=== PATIENT | female | born 1935 | race Caucasian/White ===

== ENCOUNTER 2020-02-12 07:46 | Outpatient (CLI) | payer OTHER, SELFPAY ==
--- NOTE | ~2020-02-12 | MM_ITS ---
EXAMINATION: MM screening [facility] BI w [place] HISTORY: Screening mammogram TECHNIQUE: Craniocaudal and mediolateral oblique 3-D tomosynthesis images were obtained and synthetic 2-D images were generated. CAD analysis was submitted and interpreted. COMPARISON: 01/04/2019, 12/01/2017, 02/13/2014, 01/23/2014 BREAST PARENCHYMAL COMPOSITION: There are scattered areas of fibroglandular density. FINDINGS: There is no evidence of suspicious mass, calcification, or architectural distortion to sugg est malignancy in either breast. There has been no suspicious interval change. IMPRESSION: 1. No mammographic evidence of malignancy. 2. Recommend routine screening mammography in one year. BI-RADS Category 1: Negative Reviewed, dictated and finalized at location A. WINDER
== END 2020-02-12 07:47 | disposition home or self-care (01) ==
DX: Z12.31 Encounter for screening mammogram for malignant neoplasm of breast (principal)
CPT/HCPCS: 77063; 77067

== ENCOUNTER 2021-02-14 08:08 | Outpatient (CLI) | payer OTHER, SELFPAY ==
--- NOTE | ~2021-02-14 | MM_ITS ---
EXAMINATION: MM screening [facility] w [place] HISTORY: Screening TECHNIQUE: Craniocaudal and mediolateral oblique 3-D tomosynthesis images were obtained and synthetic 2-D images were generated. CAD analysis was submitted and interpreted. COMPARISON: Comparison to multiple prior studies sequentially, with oldest reviewed study dated 12/31. BREAST PARENCHYMAL COMPOSITION: Breast composed of scattered areas of fibroglandular density FINDINGS: There is no evidence of suspicious mass, calcification, or architectural distortion to sugg est malignancy in either breast. There has been no suspicious interval change. IMPRESSION: 1. No mammographic evidence of malignancy. 2. Recommend routine screening mammography in one year. BI-RADS Category 1: Negative Reviewed, dictated and finalized at location A. Y RECORD CLERK
== END 2021-02-14 08:09 | disposition home or self-care (01) ==
DX: Z12.31 Encounter for screening mammogram for malignant neoplasm of breast (principal)
CPT/HCPCS: 77063; 77067

== ENCOUNTER 2022-04-27 07:13 | Outpatient (CLI) | payer OTHER, SELFPAY ==
--- NOTE | ~2022-04-27 | MM_ITS ---
EXAMINATION: MM screening [facility] BI w [place] HISTORY: Screening mammogram TECHNIQUE: Craniocaudal and mediolateral oblique 3-D tomosynthesis images were obtained and synthetic 2-D images were generated. CAD analysis was submitted and interpreted. COMPARISON: 02/14/2021, 02/12/2020, 01/04/2019 bilateral screening mammogram examinations BREAST PARENCHYMAL COMPOSITION: There are scattered areas of fibroglandular density. FINDINGS: There is no evidence of suspicious mass, calcification, or architectural distortion to sugg est malignancy in either breast. There has been no suspicious interval change. IMPRESSION: 1. No mammographic evidence of malignancy. 2. Recommend routine screening mammography in one year. BI-RADS Category 1: Negative Reviewed, dictated and finalized at location A. ING PIT OPERATOR
== END 2022-04-27 07:14 | disposition home or self-care (01) ==
LOC: ANHIMG 07:17
DX: Z12.31 Encounter for screening mammogram for malignant neoplasm of breast (principal)
CPT/HCPCS: 77063; 77067

== ENCOUNTER 2024-01-17 07:57 | Outpatient (CLI) | payer OTHER, SELFPAY ==
--- NOTE | ~2024-01-17 | MM_ITS ---
EXAMINATION: MM screening [facility] BI w [place] HISTORY: Screening mammogram TECHNIQUE: Craniocaudal and mediolateral oblique 3-D tomosynthesis images were obtained and synthetic 2-D images were generated. CAD analysis was submitted and interpreted. COMPARISON: 04/27/2022, 02/14/2021, 02/12/2020 BREAST PARENCHYMAL COMPOSITION:Not Dense. There are scattered areas of fibroglandular density. FINDINGS: There is a more conspicuous 5 mm mass in the slightly upper, inner right subareolar region. Stable parenchymal pattern of the left breast. No suspicious microcalcifications. IMPRESSION: More conspicuous 5 mm right subareolar breast mass, as above. Spot compression views and ultrasound are advised for further evaluation. BI-RADS Category 0: Incomplete: Needs additional imaging evaluation. Reviewed, dictated and finalized at [facility]. ENSING AUDIOLOGIST
== END 2024-01-17 07:58 | disposition home or self-care (01) ==
LOC: ANHIMG 07:59
DX: Z12.31 Encounter for screening mammogram for malignant neoplasm of breast (principal); R92.8 Other abnormal and inconclusive findings on diagnostic imaging of breast
CPT/HCPCS: 77063; 77067

== ENCOUNTER 2024-04-06 11:00 | Outpatient (CLI) | payer OTHER, SELFPAY ==
--- NOTE | ~2024-04-06 | MMUS_ITS ---
EXAMINATION: MM diagnostic [facility] RT w apolonia, US breast RT limited HISTORY: Follow-up right breast asymmetry TECHNIQUE: Additional 3-D tomosynthesis images of the right breast were performed and synthetic 2-D i mages were generated. CAD analysis was submitted and interpreted. High resolution Limited right breas t ultrasound was performed. COMPARISON: 01/17/2024 BREAST PARENCHYMAL COMPOSITION: Not dense: There are scattered areas of fibroglandular density. FINDINGS: MAMMOGRAPHIC FINDINGS: There is a persistent focal asymmetry in the upper inner quadrant of the right breast, anterior third . No suspicious calcifications or architectural distortion. ULTRASOUND: Limited right breast ultrasound: At 12:00 near the nipple there is a 5 mm simple cyst corresponding t o the mammographic finding. No suspicious masses to suggest malignancy. IMPRESSION: 1. No evidence for malignancy in the right breast. 2. Routine yearly screening mammogram and regular clinical breast examination are recommended. BI-RADS Category 2: Benign finding(s). Reviewed, dictated and finalized at location B. ORK OPERATIONS TECHNICIAN IMPRESSION: 1. No evidence for malignancy in the right breast. 2. Routine yearly screening mammogram and regular clinical breast examination a re recommended. BI-RADS Category 2: Benign finding(s).
--- OUTSIDE RECORDS SUMMARY | 2024-04-06 11:40 | XMS_ITS | Clinical Summary ---
Author Organization [facility] Address [address] [place] [address] Care Team Providers Care Junior Art Director Name Role Phone Zi Carty MD Primary Care Provider Allergies Active Allergy Reactions Criticality Noted Date Comments Penicillins Hives Reaction: Hives, Medications multivitamin tablet tablet take 1 tablet by oral route every day with food 0 1 Active citalopram (CeleXA) 10 mg tablet TAKE 1 TABLET (10MG) BY ORAL ROUTE EVERY DAY 90 0 1 Active atorvastatin (LIPITOR) 10 mg tablet TAKE 1 TABLET BY MOUTH ONCE DAILY 90 0 0 Active medroxyPROGESTE Prem (PROVERA) 2.5 mg tablet Take as directed 0 0 8 Active estrogens-methy lTESTOSTERone (ESTRATEST) 1.25-2.5 mg per tablet Take as directed 0 0 8 Active calcium 500 mg tablet Take according to pjuu-qcz-[id number] r package directions 0 0 8 Active aspirin 81 mg tablet Take one by mouth one time per day 0 0 8 Active Active Problems Problem Noted Date Diagnosed Date Hyperlipidemia 07/15/2013 Overview (06/04/2016): HYPERLIPIDEMIA NEC/NOS Depression 07/15/2013 Overview (06/05/2016): DEPRESSIVE DISORDER NEC Encounters Date Type Department Care Team Description 01/17/2024 Orders Only [facility] Scanning, Provider from Last 3 Months Immunizations Name Administration Dates Next Due Influenza, Split 02/02/2012,01/27/2011, 0 Influenza, Trivalent, IM (MDV) 12/30/2012,2008 Pneumococcal Polysaccharide PPV23 11/05/2005 Td, adsorbed 01/22/2009 ZOSTER LIVE 06/01/2006 Surgical History Surgery Date Site/Laterality Comments APPENDECTOMY 1950 Appendectomy HERNIA REPAIR 1954 Hernia repair CATARACT EXTRACTION 2009 Cataract extraction Social History Tobacco Use Types Packs/Day Years Used Date Smoking Tobacco: Never Assessed Alcohol Use Standard Drinks/Week Comments Yes 0 (1 standard drink = 0.6 oz pur e alcohol) Comments Unknown Sex and Gender Information Value Date Recorded Sex Assigned at Not on file 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 Gender Identity Not on file Sexual Orientation Not on file Obstetrics History Last Filed Vital Signs Vital Sign Reading Time Taken Comments Blood Pressure 124/76 06/06/2013 11:35 AM CDT Pulse 88 06/06/2013 11:35 AM CDT Temperature - - Respiratory Rate - - Oxygen Saturation - - Inhaled Oxygen Concentration - - Weight 67.3 kg (148 lb 6.4 oz) 06/06/2013 11:35 AM CDT Height 160.7 cm (5' 3.25 ) 06/06/2013 11:35 AM C DT Body Mass Index 26.08 06/06/2013 11:35 AM CDT Plan of Treatment Not on file Procedures Procedure Name Priority Date/Time Associated Diagnosis Comments SCAN - RADIOLOGY/IMAGING 01/17/2024 from Last 3 Months Results * SCAN - RADIOLOGY/IMAGING (01/17/2024) Anatomical Region Laterality Modality Other us Provider Scanning Final Result from Last 3 Months Care Teams Junior Art Director Relationship Specialty Start Date End Date Zi Carty MD [address] [facility] [address] [place] [address] PCP - General Internal Medicine 11/29/23
--- OUTSIDE RECORDS SUMMARY | 2024-04-06 11:40 | XMS_ITS | Referral Summary ---
Author Organization [facility] Address [address] [place] [address] Care Team Providers Care News Video Editor Name Role Phone Zi Carty MD Primary Care Provider Encounters Date Type Department Care Team Description 01/17/2024 Orders Only [facility] Scanning, Provider from Last 3 Months Allergies Active Allergy Reactions Criticality Noted Date [...] calcium 500 mg tablet Take according to buuq-gja-yudrxg r package directions 0 0 8 Active aspirin 81 mg tablet Take one by mouth one time per day 0 0 8 Active Active Problems Problem Noted Date Diagnosed Date Hyperlipidemia 07/15/2013 Overview (06/04/2016): HYPERLIPIDEMIA NEC/NOS Depression 07/15/2013 Overview (06/05/2016): DEPRESSIVE DISORDER NEC Immunizations Name Administration Dates Next Due Influenza, Split 02/02/2012,01/27/2011, 0 Influenza, Trivalent, IM (MDV) 12/30/2012,2008 Pneumococcal Polysaccharide PPV23 11/05/2005 Td, adsorbed 01/22/2009 ZOSTER LIVE 06/01/2006 Social History Tobacco Use Types Packs/Day Years Used Date Smoking Tobacco: Never Assessed Alcohol Use Standard Drinks/Week Comments Yes 0 (1 standard drink = 0.6 oz pur e alcohol) Comments Unknown Sex and Gender Information Value Date Recorded Sex Assigned at Not on file 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
--- OUTSIDE RECORDS SUMMARY | 2024-04-06 11:40 | XMS_ITS | Encounter Summary ---
Author Organization [facility] Address [address] [place] [address] Phone Care Team Providers Care Monogram Maker Name Role Phone Zi Carty MD Primary Care Provider [phone] Encounter Details Date Type Department Care Team (Latest Contact Info) Description 01/17/2024 Orders Only [facility] Scanning, Provider Social History Tobacco Use Types Packs/Day Years Used Date Smoking Tobacco: Never Assessed Alcohol Use Standard Drinks/Week Comments Yes 0 (1 standard drink = 0.6 oz pur e alcohol) Comments Unknown Sex and Gender Information Value Date Recorded Sex Assigned at Not on file 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 Gender Identity Not on file Sexual Orientation Not on file documented as of this encounter Plan of Treatment Not on file documented as of this encounter Procedures Procedure Name Priority Date/Time Associated Diagnosis Comments SCAN - RADIOLOGY/IMAGING 01/17/2024 documented in this encounter Results * SCAN - RADIOLOGY/IMAGING (01/17/2024) Anatomical Region Laterality Modality Other us Provider Scanning Final Result documented in this encounter Visit Diagnoses Not on filedocumented in this encounter Care Teams Monogram Maker Relationship Specialty Start Date End Date Zi Carty MD [address] [place] [address] PCP - General Internal Medicine 11/29/23 documented as of this encounter
--- OUTSIDE RECORDS SUMMARY | 2024-04-06 11:40 | XMS_ITS | Continuity of Care Document ---
Author Organization [facility] Address [address] [place] [address] Phone Care Team Providers Care Securities And Real Estate Director Name Role Phone Serg Duque Unavailable Unavailable Procedures Procedure Date Post-op Follow-up Visit Remove Cataract, Insert Lens Presbyopia Correcting IOL No Charge Glasses Check Office/outpatient Visit, [facility] Advance Directives Directive Yes / No Effective Date File Name No Information Encounters Encounter Description Practice Location Reason(s) For Visit Diagnoses Date Provider Providers Copied on Encounter [facility], [address] [place] [address] [address], [place], [place], [id number], tel:[phone] [facility] No Information 0 Neto Ulrich. [address] , [address], [place], [place], [facility], . tel:[phone] [facility], [id number] [place] [address] [address], [place], [place], [id number], [place] tel:[phone] [facility] No Information 0 Neto Ulrich. [address] , [address], [place], [place], [facility], . tel:[phone] [facility], [address] [place] [address] [address], [place], [place], [id number], tel:[phone] [facility] No Information 3-201 0 Neto Ulrich. [address] [facility] , [address], [place], [address], [place]. tel:[phone] Office/outpat ient Visit, [facility], [address], [place], [place], [id number], [place] tel:[phone] [facility] No Information 8-201 0 Neto Ulrich. [address] [facility] , [address], [place], [address], [place]. tel:[phone] Referring Provider: Serg Woo, [facility] [facility] [address], [place], [address]. tel:[phone] Family History Family Member Type Diagnosis Age At Onset No Information Payers Payer name Insurance type Covered democrat ID Authoriza tion(s) No Information Social History Type Description Quantity Date Captured Comments Sex Female Smoking Status No Information Chief Complaint And Reason For Visit No Information Reason For Referral Reason For Referral No Information History Of Present Illness Encounter Date Complaint History Of Prese nt Illness No Information Functional Status Date Functional Assessmen t No Information Instructions Date Instruction Additional Infor mation No Information Assessments Type Assessment Date No Information Patient Care Teams Name Effective Dates (start - stop) Status Members No Information
--- OUTSIDE RECORDS SUMMARY | 2024-04-06 11:40 | XMS_ITS | Clinical Summary ---
Author Organization [facility] Address [address] [place] [address] Phone Care Team Providers Care Resident Care Director Name Role Phone Zi Carty MD Primary Care Provider Allergies Active Allergy Reactions Criticality Noted Date Comments Penicillins Rash 09/08/2017 Medications antipyrine-dano ocaine (AURODEX) 5.4-1.4 % Solution Place 2-4 Drops in affected ear(s) every 2 hours as needed for Pain. Use in affected ear as directed. 10 mL 09/08/2017 Active Social History Tobacco Use Types Packs/Day Years Used Date Smoking Tobacco: Never Smokeless Tobacco: Never Alcohol Use Standard Drinks/Week Comments Yes 0 (1 standard drink = 0.6 oz pur e alcohol) socially Comments No Sex and Gender Information Value Date Recorded Sex Assigned at Not on file Legal Sex Female 10:15 AM CDT Gender Identity Not on file Sexual Orientation Not on file Last Filed Vital Signs Vital Sign Reading Time Taken Comments Blood Pressure 118/61 09/08/2017 10:30 AM CDT Pulse 99 09/08/2017 10:30 AM CDT Temperature 36.6 C (97.9 F) 09/08/2017 10:30 AM CDT Respiratory Rate 16 09/08/2017 10:30 AM CDT Oxygen Saturation 99% 09/08/2017 10:30 AM CDT Inhaled Oxygen Concentration - - Weight 68 kg (150 lb) 09/08/2017 10:30 AM CDT Height 162.6 cm (5' 4 ) 09/08/2017 10:30 AM CDT Body Mass Index 25.75 09/08/2017 10:30 AM CDT Plan of Treatment Health Maintenance Due Date Last Done Comments DEXA Bone Density 1935 Hepatitis C Virus (HCV) Screening 1935 TdaP Immunization 1935 Pneumococcal Immunization (5 0+ years) (1 of 1 - PCV) 1986 Zoster Immunization (1 of 2) 1986 Respiratory Syncytial Virus (RSV) Immunization (Adult) (1 - 1-dose 75+ series) 10/07/2011 Influenza Immunization (#1) 2023 SARS-COV-2 Immunization ( - 2023- season) 2023 12/05/2020, 05/23/2020, 05/02/2020 Hepatitis B Immunization Aged Out No longer eligible based on patient's age to complete this topic Meningococcal Immunization (ACWY) Aged Out No longer eligible b ased on patient's age to complete this topic Rotavirus Immunization Aged Out No lo nger eligible based on patient's age to complete this topic Insurance MEDICARE C [employer] Care Teams Resident Care Director Relationship Specialty Start Date End Date Zi Carty MD PCP - General Internal Medicine 09/08/17
== END 2024-04-06 11:01 | disposition home or self-care (01) ==
DX: R92.8 Other abnormal and inconclusive findings on diagnostic imaging of breast (principal)
CPT/HCPCS: 76642; 77061; 77065; G0279